=== PATIENT | male | born 1960 | race Caucasian/White ===

== ENCOUNTER 2020-03-23 13:57 | Inpatient (IN) | payer OTHER ==
[~2020-03-23] VITALS: Ht 182.9 cm; Wt 103.9 kg
[~2020-03-23 13:57] MED LIST: ASPI325EC PO; CLOP75 PO; ISOMON30 PO; METF500 PO
[2020-03-23 14:53] LABS: BASOPHILS ABSOLUTE AUTO 0.07 K/mm3 (0.00-0.23); BASOPHILS PERCENT AUTO 1 % (0-2); EOSINOPHILS ABSOLUTE AUTO 0.22 K/mm3 (0.00-0.68); EOSINOPHILS PERCENT AUTO 2 % (0-6); Hematocrit 38.7 % (37.0-53.0); Hemoglobin 12.9 g/dL (13.5-17.5); IMMATURE GRAN ABSOLUTE AUTO 0.02 K/mm3 (0.00-0.10); IMMATURE GRAN PERCENT AUTO 0 % (0-1); LYMPHOCYTES ABSOLUTE AUTO 1.72 K/mm3 (0.84-5.20); LYMPHOCYTES PERCENT AUTO 19 % (21-46); MONOCYTES ABSOLUTE AUTO 0.86 K/mm3 (0.16-1.47); MONOCYTES PERCENT AUTO 10 % (4-13); Mean Corpuscular HGB 29.1 pg (26.0-34.0); Mean Corpuscular HGB Conc 33.3 g/dL (31.5-36.5); Mean Corpuscular Volume 87 fL (80-100); Mean Platelet Volume 11.1 fL (9.1-12.4); NEUTROPHILS ABSOLUTE AUTO 6.21 K/mm3 (1.96-9.15); NEUTROPHILS PERCENT AUTO 68 % (41-73); Platelet Count 175 K/mm3 (150-400); RDW Coefficient Variation 12.4 % (11.7-14.2); RDW Standard Deviation 39.9 fL (35.1-46.3); Red Blood Cell Count 4.43 M/mm3 (4.30-5.90)
[2020-03-23 15:23] LABS: Alanine Aminotransfer (ALT/SGP 33 U/L (12-78); Albumin, Blood 3.8 g/dL (3.4-5.0); Albumin/Globulin Ratio 1.2 (0.8-1.8); Alk Phos 62 U/L (50-136); Anion Gap 6 mmol/L (6-16); Aspartate Aminotrans (AST/SGOT 21 U/L (12-37); Bilirubin, Total 0.6 mg/dL (0.1-1.0); Blood Urea Nitrogen 14 mg/dL (8-24); Bun/Creatinine Ratio 17.5 (12.0-20.0); CO2, Blood 26 mmol/L (21-32); Calcium, Blood 8.6 mg/dL (8.5-10.1); Chloride, Blood 107 mmol/L (98-108); Globulin, Blood 3.2 g/dL (2.2-4.0); Glomerular Filtration Rate >60 (60-); Glucose, Blood 143 mg/dL (70-99); Potassium, Blood 3.6 mmol/L (3.5-5.5); Sodium, Blood 139 mmol/L (136-145)
[2020-03-23] MEDS ORDERED: Glimepiride2 MG PO (16:12)
[2020-03-23] MEDS ORDERED: AMLO5 PO (16:12)
[2020-03-23] MEDS ORDERED: LEVSOD25 PO (16:13)
[2020-03-23] MEDS ORDERED: Prinivil10 MG PO (16:13)
[2020-03-23] MEDS ORDERED: Toprol Xl50 MG PO (16:14)
[2020-03-23] MEDS ORDERED: METF500 PO (16:14)
[2020-03-23] MEDS ORDERED: Pravachol40 MG PO (16:15)
[2020-03-23 16:54] LABS: International Normalized Ratio 1.04; Prothrombin Time Results 11.1 Sec (9.7-11.5)
--- NOTE | 2020-03-23 17:00 | NUR ---
ASSUMED CARE: PT ARRIVES TO ROOM, ALERT AND ORIENTED, INDEPENDENT. STATES CP IS 1.5/10. VSS. AT BEDSIDE. STATES HE IS HUNGRY. HR NSR IN 50S.
[2020-03-23] MEDS ORDERED: ASPI325 PO (17:02)
--- NOTE | 2020-03-23 18:00 | NUR ---
DR DIAZ HERE TO SEE PT. STATES TO HOLD METFORMIN. WHEN ASKED IF IT COULD BE DC'D FOR NOW DR STATES TO JUST HOLD IT AND RESUME IN A FEW DAYS. STATES NPO AFTER MN, MAY EAT DINNER FOR PROCEDURE IN AM PER DR HAYS. AWARE THAT PT STATES CP 10/17, DR STATES TO HOLD NITRO GTT AT THIS TIME. HEPARIN GTT RUNNING AND PLAVIX LOADING DOSE GIVEN. VSS. NO FURTHER NEEDS OR CONCERNS AT THIS TIME.
--- NOTE | 2020-03-23 20:00 | NUR ---
ASSUMED CARE: PT A&0. AWAKE IN BED. DOESN'T HAVE ANY COMPLAINTS EXCEPT HE WOULD LIKE TO EAT. SANDWICHES GIVEN. STATES CHEST PAIN IS 2/10. IN SINUS BRENDEN, HR HIGH 40S-50S, SBP IN THE 120S. LUNG SOUNDS CLEAR, SPO2 >90% ON RA. BT X4. PT IS ABLE TO STAND AND USE URINAL. PT WILL BE NPO AFTER MIDNIGHT FOR ANGIO IN MORNING. PIV IN L HAND AND LAC. NS WITH KCL INFUSING AT 75MLS/HR AND HEPARIN GTT INFUSING AT 13U/KG. DOSING WT IS 87KG AND IS INFUSING AT 22.6MLS/HR. WILL CONTINUE TO MONITOR
[2020-03-24 03:37] LABS: BASOPHILS ABSOLUTE AUTO 0.07 K/mm3 (0.00-0.23); BASOPHILS PERCENT AUTO 1 % (0-2); EOSINOPHILS ABSOLUTE AUTO 0.32 K/mm3 (0.00-0.68); EOSINOPHILS PERCENT AUTO 4 % (0-6); Hemoglobin 12.8 g/dL (13.5-17.5); IMMATURE GRAN ABSOLUTE AUTO 0.02 K/mm3 (0.00-0.10); IMMATURE GRAN PERCENT AUTO 0 % (0-1); LYMPHOCYTES ABSOLUTE AUTO 2.15 K/mm3 (0.84-5.20); LYMPHOCYTES PERCENT AUTO 27 % (21-46); MONOCYTES ABSOLUTE AUTO 0.78 K/mm3 (0.16-1.47); MONOCYTES PERCENT AUTO 10 % (4-13); Mean Corpuscular HGB 29.6 pg (26.0-34.0); Mean Corpuscular HGB Conc 33.7 g/dL (31.5-36.5); Mean Corpuscular Volume 88 fL (80-100); Mean Platelet Volume 11.3 fL (9.1-12.4); NEUTROPHILS ABSOLUTE AUTO 4.54 K/mm3 (1.96-9.15); NEUTROPHILS PERCENT AUTO 58 % (41-73); Platelet Count 162 K/mm3 (150-400); RDW Coefficient Variation 12.7 % (11.7-14.2); RDW Standard Deviation 40.2 fL (35.1-46.3); Red Blood Cell Count 4.33 M/mm3 (4.30-5.90); White Blood Cell Count 7.88 K/mm3 (4.00-11.30)
[2020-03-24 04:19] LABS: Alanine Aminotransfer (ALT/SGP 32 U/L (12-78); Albumin, Blood 3.6 g/dL (3.4-5.0); Albumin/Globulin Ratio 1.2 (0.8-1.8); Alk Phos 53 U/L (50-136); Anion Gap 5 mmol/L (6-16); Aspartate Aminotrans (AST/SGOT 37 U/L (12-37); Bilirubin, Total 0.7 mg/dL (0.1-1.0); Blood Urea Nitrogen 13 mg/dL (8-24); Bun/Creatinine Ratio 19.5 (12.0-20.0); CO2, Blood 28 mmol/L (21-32); Calcium, Blood 8.8 mg/dL (8.5-10.1); Chloride, Blood 106 mmol/L (98-108); Creatinine, Blood 0.67 mg/dL (0.60-1.20); Glomerular Filtration Rate >60 (60-); Glucose, Blood 148 mg/dL (70-99); Magnesium, Blood 2.2 mg/dL (1.6-2.4); Sodium, Blood 139 mmol/L (136-145); Total Protein, Blood 6.6 g/dL (6.4-8.2)
--- NOTE | 2020-03-24 05:51 | NUR ---
SHIFT SUMMARY: NO ACUTE CHANGES T/O SHIFT. VITALS STABLE. PT HAS BEEN NPO SINCE MIDNIGHT. HEPARIN IS INFUSING AT 15U/KG/HR, THE RATE IS 26.1 MLS/HR. TROPONIN CONTINUES TO RISE. IDANIA IS AWARE. PT DENIES CP. WILL PASS REPORT TO ONCOMING SHIFT
--- NOTE | 2020-03-24 09:27 | NUR ---
[place] of Care: Care assumed at 0700hr. Patient alert and oriented x4, sitting upright in bed. Denies pain, discomfort, SOB, or dyspnea. Denies chest pain or discomfort. VSS, spO2-96% on RA. Scheduled lopressor held this morning per HR in the 50's, all other scheduled medications given. Tolerated PO medications without difficulty. Patient otherwise NPO r/t scheduled angiogram this morning. Heparin gtt infusing per EMAR, verified with 2nd RN. Peripheral IV's x2 patent and intact, infusing without difficulty. Stands in room to void without assistance. Call light in reach, makes needs known. Will continue to monitor.
--- NOTE | 2020-03-24 18:03 | NUR ---
Shift Summary: Patient transported to [facility] by [facility] staff at approx 1345. Patient then returned to room at 1630hr, accompanied by x2 [facility] RN. Patient remains alert and oriented x4, continues to deny chest pain/discomfort or pain in any locations, denies dyspnea/SOB. VS remain stable, spO2-95-98%. Rt femoral artery accessed, closure device placed in quality lab technician. Rt groin remains wnl, no s/s of active bleeding or hematoma, scant amount of blood drainage to CHG dressing. Distal limb remains wnl, warm, no lack of sensation, and strong pulses to posterior tibial and dorsal pedal. Ate 100% of finger food dinner, tolerating food and fluids without difficulty. Complying with lying flat for x2hr (per Dr. Love), plan to raise HOB slowly starting at 1830hr. Using urinal in bed to void without difficulty. Will continue to monitor until report to NOC shift RN.
--- NOTE | 2020-03-24 20:00 | NUR ---
ASSUMED CARE: PT A&O. AWAKE IN BED. AT BEDSIDE. PT REMAINS BRADYCARDIC WITH HR IN THE 50S, SBP RANGING FROM 110S-130S. DENIES CP OR SOB. LUNG SOUNDS CLEAR. SPO2 >90% ON RA. VOIDING INTO URINAL ON OWN. PT IS CURRENTLY ON FLAT TIME BUT OTHERWISE AMBULATES WELL ON OWN. PT WENT TO [facility] TODAY AND HAD 3 STENTS PLACED. R GROIN ACCESS SITE SEALED WITH ANGIOSEAL COVERED WITH GAUZE AND CLEAR OPSITE. SOME OOZING FROM SITE OTHERWISE AREA IS SOFT AND MILDLY TENDER. WILL CONTINUE TO MONITOR SITE.
--- NOTE | 2020-03-24 20:30 | NUR ---
WENT TO CHECK ON R GROIN ACCESS SITE AND CHANGE DRESSING. SIGNIFICANTLY MORE BLOODY DRAINAGE ON DRESSING EXTENDING OUTSIDE DRESSING BORDERS. APPLIED MANUAL PRESSURE FOR ABOUT 10 MIN UNTIL HEMOSTASIS OCCURED. DRESSING CHANGED AT THAT TIME. SLOW LEAK NOTED. PLACED STERLING AND CLEAR OPSITE OVER PUNCTURE SITE. R LEG IS PINK, WARM, DRY. PEDAL PULSE STRONG AND CAP REFILL <3 SEC. WILL CONTINUE TO MONITOR
--- NOTE | 2020-03-24 20:45 | NUR ---
DRESSING REMAINS INTACT. SLIGHT INCREASE OF BLOODY DRAINAGE ON DRESSING. AREA IS SOFT AND SLIGHTLY TENDER. WILL CONTINUE TO MONITOR.
--- NOTE | 2020-03-24 21:15 | NUR ---
SLIGHT INCREASE OF BLOODY DRAINAGE. GROIN REMAINS SOFT. WILL CONTINUE TO MONITOR
--- NOTE | 2020-03-24 21:45 | NUR ---
R GROIN ACCESS SITE REMAINS UNCHANGED FROM LAST NOTE. NO INCREASE IN OOZING AND DRESSING REMAINS INTACT.
--- NOTE | 2020-03-24 22:34 | NUR ---
R GROIN SITE REMAINS UNCHNAGED. NO NEW OOZING. GROIN AREA REMAINS SOFT. WILL CONTINUE TO MONITOR
[2020-03-25 03:23] LABS: BASOPHILS ABSOLUTE AUTO 0.05 K/mm3 (0.00-0.23); BASOPHILS PERCENT AUTO 1 % (0-2); EOSINOPHILS PERCENT AUTO 3 % (0-6); Hematocrit 39.9 % (37.0-53.0); Hemoglobin 13.1 g/dL (13.5-17.5); IMMATURE GRAN ABSOLUTE AUTO 0.02 K/mm3 (0.00-0.10); IMMATURE GRAN PERCENT AUTO 0 % (0-1); LYMPHOCYTES PERCENT AUTO 23 % (21-46); MONOCYTES ABSOLUTE AUTO 0.72 K/mm3 (0.16-1.47); MONOCYTES PERCENT AUTO 11 % (4-13); Mean Corpuscular HGB 28.9 pg (26.0-34.0); Mean Corpuscular HGB Conc 32.8 g/dL (31.5-36.5); Mean Corpuscular Volume 88 fL (80-100); Mean Platelet Volume 10.7 fL (9.1-12.4); NEUTROPHILS ABSOLUTE AUTO 4.19 K/mm3 (1.96-9.15); NEUTROPHILS PERCENT AUTO 63 % (41-73); Platelet Count 154 K/mm3 (150-400); RDW Coefficient Variation 12.5 % (11.7-14.2); RDW Standard Deviation 40.7 fL (35.1-46.3); Red Blood Cell Count 4.54 M/mm3 (4.30-5.90); White Blood Cell Count 6.68 K/mm3 (4.00-11.30)
[2020-03-25 03:38] LABS: Albumin, Blood 3.5 g/dL (3.4-5.0); Anion Gap 6 mmol/L (6-16); Blood Urea Nitrogen 11 mg/dL (8-24); Bun/Creatinine Ratio 17.7 (12.0-20.0); CO2, Blood 26 mmol/L (21-32); Calcium, Blood 8.4 mg/dL (8.5-10.1); Chloride, Blood 108 mmol/L (98-108); Creatinine, Blood 0.62 mg/dL (0.60-1.20); Glomerular Filtration Rate >60 (60-); Glucose, Blood 133 mg/dL (70-99); Magnesium, Blood 2.2 mg/dL (1.6-2.4); Phosphorus, Blood 3.3 mg/dL (2.5-4.9); Potassium, Blood 3.8 mmol/L (3.5-5.5); Sodium, Blood 140 mmol/L (136-145)
--- NOTE | 2020-03-25 05:45 | NUR ---
SHIFT SUMMARY: PT SLEPT MAJORITY OF NIGHT. VITALS REMAINED STABLE EXCEPT FOR A SHORT PEROID ECTOPY NOTED ON MONITOR. STRIP IN CHART. R GROIN SITE DRESSING IN INTACT. HAS SMALL AMT OF SINGIOUNESS DRAINAGE. NOT CURRENTLY LEAKY OR OOZY. R GROIN REMAINS SOFT, NO HEMATOMA PRESENT. PULSES PRESENT, CAP REFILL <3 SEC. PT HAD NO COMPLAINTS T/O NIGHT-NO CP, SOB. WILL PASS REPORT TO ONCOMING RN
--- NOTE | 2020-03-25 09:51 | NUR ---
[place] of Care: Care assumed at 0700hr. Patient alert and oriented x4. Denies chest pain/discomfort, or pain in any location, denies dyspnea/SOB. VSS, SpO2-96-98% on RA, HR continues to show sinus bradycardia in the 50's, BP stable. Rt groin site (arterial access) wnl, small amount of dried blood drainage to dressing, no s/s of bleeding/hematoma. Tolerating PO food/fluids without difficulty. Peripheral IV's x2 patent and intact. Using urinal at bedside to void without difficulty. Call light in reach, makes needs known, adjust own position or stands without assistance. Dr. Love to room at approx 0930hr. This RN assisted with dressing change to rt groin, site remains stable, wnl. Received instructions/approval to discharge to home, and that Dr. Love has already spoke with Dr. Roach r/t discharge. Awaiting discharge orders per Dr. Roach at this time.
[2020-03-25] MEDS ORDERED: METO25ER PO (13:02)
[2020-03-25] MEDS ORDERED: ASPI81CH PO (13:15)
[2020-03-25] MEDS ORDERED: ATOR80 PO (13:15)
[2020-03-25] MEDS ORDERED: CLOP75 PO (13:15)
[2020-03-25] MEDS ORDERED: NITR.4SL SL (13:16)
[2020-03-25] MEDS ORDERED: Nicoderm Cq1 EAC1 TOP (13:16)
--- NOTE | 2020-03-25 13:52 | NUR ---
Discharge: Received discharge orders per Dr. Roach. IV's removed x2 to lt wrist and AC. Patient continued to deny pain or discomfort, SOB or dyspnea. VS remained stable. Discharge medications called to [facility] in [place]. Discharge instructions and medications reviewed with patient and his . Rt femoral acces site remained stable, no s/s of bleeding or hematoma. Patient left unit ambulatory at 1345hr accompanied by his .
== END 2020-03-25 13:46 | disposition home or self-care (01) | DRG 246 ==
LOC: ER 13:57 → ICUW 16:52
PROVIDERS: Emergency Medicine; ADMIT Internal Medicine Gastroenterology
PROC: 4A023N7 Measurement of Cardiac Sampling and Pressure, Left Heart, Percutaneous Approach (ICD-10-PCS; principal; 2020-03-24)
PROC: 027135Z Dilation of Coronary Artery, Two Arteries with Two Drug-eluting Intraluminal Devices, Percutaneous Approach (ICD-10-PCS; 2020-03-24)
PROC: B2111ZZ Fluoroscopy of Multiple Coronary Arteries using Low Osmolar Contrast (ICD-10-PCS; 2020-03-24)
DX: I25.720 Atherosclerosis of autologous artery coronary artery bypass graft(s) with unstable angina pectoris (principal); I21.4 Non-ST elevation (NSTEMI) myocardial infarction; I10 Essential (primary) hypertension; E11.9 Type 2 diabetes mellitus without complications; E78.00 Pure hypercholesterolemia, unspecified; F17.210 Nicotine dependence, cigarettes, uncomplicated; I25.2 Old myocardial infarction; Z95.5 Presence of coronary angioplasty implant and graft
CPT/HCPCS: 36415; 71046; 76937; 80053; 80069; 82947; 83690; 83735; 83880; 84484; 85025; 85347; 85610; 85730; 92978; 92979; 93005; 93010; 93459; 93571; 99152; 99153; 99285-25; A9270-GY; C1725; C1753; C1760; C1769; C1874; C1887; C1894; C8923; C9600; C9604; J1644; J2250; J3010; J3480; J7030; Q9967